=== PATIENT | female | born 2000 | race Caucasian/White ===

== ENCOUNTER 2018-12-06 00:05 | Emergency (ER) | payer MEDICAID ==
[~2018-12-06] VITALS: Ht 167.6 cm; Wt 81.2 kg
[2018-12-06 00:07] VITALS: BP 117/78
== END 2018-12-06 01:18 | disposition home or self-care (01) ==
LOC: ER 00:06
DX: K12.0 Recurrent oral aphthae (principal); K12.1 Other forms of stomatitis
CPT/HCPCS: 99281